=== PATIENT | female | born 1980 | race Caucasian/White ===

== ENCOUNTER 2016-11-29 09:52 | Outpatient (CLI) | payer BC ==
--- NOTE | 2016-11-29 22:47 | ULT ---
RIGHT UPPER QUADRANT ULTRASOUND 11/29/16 Ultrasonography of the right upper quadrant was done for evaluation of epigastric pain. The liver is normal in appearance. The patient's inferior vena cava is a bit more prominent than usu al, significance unknown. The aorta is not displayed completely. The gallbladder contained no signs of stones or wall thickening. There are no dilated intrahepatic ducts. The common bile duct is a nor mal 5 mm in caliber. The pancreas was partially obscured by gas, but the visible areas appear normal . The right kidney was not seen exceptionally well, but the area seen seems normal. It measured 10.0 cm in length. There was no hydronephrosis. IMPRESSION: Slightly limited study showing no acute right upper quadrant findings. POS: HOME
== END 2016-11-29 09:53 | disposition home or self-care (01) ==
LOC: BURULT 09:52
PROVIDERS: ATTEND Physician Assistant
DX: R10.13 Epigastric pain (principal)
CPT/HCPCS: 76705